=== PATIENT | female | born 1930 | race Caucasian/White ===

== ENCOUNTER 2019-11-04 20:19 | Emergency (ER) | payer MEDICARE ==
[~2019-11-04] VITALS: Ht 157.5 cm; Wt 76.7 kg
--- NOTE | 2019-11-04 21:37 | Diagnostic Imaging Report ---
EXAMINATION: Head CT without contrast. HISTORY:Status post fall. COMPARISON:None. TECHNIQUE: Multidetector axial images were obtained from the foramen magnum to the vertex without contrast. The images were reconstructed using brain and bone algorithms. Thin section brain images were reformatted into coronal and sagittal planes. Dose modulation, iterative reconstruction, and/or weight based adjustment of the mA/kV was utilized to reduce the radiation dose to as low as reasonably achievable. Intravenous contrast: None IMAGE QUALITY: Suboptimal evaluation particularly of the skull base and posterior fossa structures due to streak artifacts. FINDINGS: Skull/scalp: Moderate left parietal scalp soft tissue edema/hematoma with a small focus of soft tissue air represents laceration with overlying surgical jose. No acute depressed or displaced calvarial fracture. Parenchyma: Nonspecific bilateral frontoparietal confluent periventricular and patchy subcortical and deep white matter hypodensity are likely related to small vessel ischemic changes. 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 Focal hypodensity in left cerebellar hemisphere represents chronic lacunar infarct. No acute hemorrhage, mass or acute major vascular territorial infarct. Arteries: No density suggestive of thrombosis. Atherosclerotic calcification in bilateral carotid siphon. Dural sinuses: No abnormal density suggestive of thrombosis. Ventricles: Mild compensated dilatation due to volume loss. No hydrocephalus. Extra-axial spaces: No abnormal density. Brain volume: Generalized age-related cerebral volume loss. Craniocervical junction: No mass, Chiari malformation, or basilar invagination. Sella: No mass. Paranasal/mastoid sinuses: Imaged portions unremarkable. IMPRESSION: 1. Moderate left parietal scalp soft tissue edema/hematoma and laceration. No acute fracture. 2. No acute posttraumatic intracranial abnormality. 3. Moderate supratentorial white matter microvascular ischemic changes. 4. 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 5. Generalized age-related cerebral volume loss. Signed by: Dr. Emily Sherman M.D. on 11/04/2019 9:34 PM
--- NOTE | 2019-11-04 21:41 | Emergency Department Note ---
History of Present Illnes History of Present Illness Chief Complaint: Head/Face Trauma History of Present Illness This is a 89 year old female ED with report of fall this am, pt was taken to [facility] and had 4 jose placed to back of head, CT performed and labs drawn, was dc'd back to [facility] with Dx UTI;PER SNF PT SENT TO BE MONITORED PER PHYSICIAN TAKING CARD OF PT, PT IN NO DISTRESS . Historian: Patient, Family Member, [employer] Mechanic/EMS Arrival Mode: nc Onset (how long ago): hour(s) (10) Location: HEAD Quality: LACERATION, Severity: mild Onset quality: sudden Duration (how long): hour(s) (10) Progression: unchanged Chronicity: new Relieving factors: none Exacerbating factors: none Previous service: other (SEEN AT [facility], JOSE PLACED IN LACERATION) Past Medical/Family History Physician Review I have reviewed the patient's past medical and family history. Any updates have been documented here. Past Medical History Recent Fever: No Clinical Suspicion of Infectio: No New/Unexplained Change in Ment: No Past Medical History: Hypertension, CVA, Cancer, UTI's, Anxiety, GERD, Hyperlipedemia Other Surgery: unk Social History Smoking Cessation: Never Smoker Alcohol Use: Occasional Any Illegal Drug Use: No Family History Family history of heart diseas: No Other Last Tetanus: utd Review of Systems Review of Systems Constitutional: Reports no symptoms EENTM: Reports no symptoms Cardiovascular: Reports no symptoms Respiratory: Reports no symptoms Gastrointestinal: Reports no symptoms Genitourinary: Reports no symptoms Musculoskeletal: Reports as per HPI Integumentary: Reports no symptoms Neurological: Reports no symptoms Psychological: Reports no symptoms Endocrine: Reports no symptoms Hematological/Lymphatic: Reports no symptoms Physical Exam Related Data Allergies: Coded Allergies: hydromorphone (Verified Allergy, Intermediate, 11/04/19) levofloxacin (Verified Allergy, Intermediate, 11/04/19) morphine (Verified Allergy, Intermediate, 11/04/19) moxifloxacin (Verified Allergy, Intermediate, 11/04/19) pramipexole (Verified Allergy, Intermediate, 11/04/19) Triage Vital Signs Vital Signs Date Time Temp Pulse Resp B/P (MAP) Pulse Ox O2 Delivery O2 Flow Rate FiO2 11/04/19 21:06 98.9 92 17 144/87 98 Vital signs reviewed: Yes Physical Exam CONSTITUTIONAL Constitutional: Present well-developed, Present well-nourished HENT HENT: Present normocephalic, Present oropharynx clear/moist, Present nose normal, Present other (4 JOSE TO POSTERIOR SCALP) HENT L/R: Present left ext ear normal, Present right ext ear normal EYES Eyes: Reports PERRL, Reports conjunctivae normal NECK Neck: Present ROM normal PULMONARY Pulmonary: Present effort normal, Present breath sounds normal CARDIOVASCULAR Cardiovascular: Present regular rhythm, Present heart sounds normal, Present capillary refill normal, Present normal rate GASTROINTESTINAL Abdominal: Present soft, Present nontender, Present bowel sounds normal GENITOURINARY Genitourinary: Present exam deferred SKIN Skin: Present warm, Present dry MUSCULOSKELETAL Musculoskeletal: Present ROM normal NEUROLOGICAL Neurological: Present alert, Present oriented x 3, Present no gross motor or sensory deficits PSYCHOLOGICAL Psychological: Present mood/affect normal, Present judgement normal Results Imaging Imaging results reviewed: Yes Impressions EXAMINATION: Head CT without contrast. HISTORY:Status post fall. COMPARISON:None. TECHNIQUE: Multidetector axial images were obtained from the foramen magnum to the vertex without contrast. The images were reconstructed using brain and bone algorithms. Thin section brain images were reformatted into coronal and sagittal planes. Dose modulation, iterative reconstruction, and/or weight based adjustment of the mA/kV was utilized to reduce the radiation dose to as low as reasonably achievable. Intravenous contrast: None IMAGE QUALITY: Suboptimal evaluation particularly of the skull base and posterior fossa structures due to streak artifacts. FINDINGS: Skull/scalp: Moderate left parietal scalp soft tissue edema/hematoma with a small focus of soft tissue air represents laceration with overlying surgical jose. No acute depressed or displaced calvarial fracture. Parenchyma: Nonspecific bilateral frontoparietal confluent periventricular and patchy subcortical and deep white matter hypodensity are likely related to small vessel ischemic changes. 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 Focal hypodensity in left cerebellar hemisphere represents chronic lacunar infarct. No acute hemorrhage, mass or acute major vascular territorial infarct. Arteries: No density suggestive of thrombosis. Atherosclerotic calcification in bilateral carotid siphon. Dural sinuses: No abnormal density suggestive of thrombosis. Ventricles: Mild compensated dilatation due to volume loss. No hydrocephalus. Extra-axial spaces: No abnormal density. Brain volume: Generalized age-related cerebral volume loss. Craniocervical junction: No mass, Chiari malformation, or basilar invagination. Sella: No mass. Paranasal/mastoid sinuses: Imaged portions unremarkable. IMPRESSION: 1. Moderate left parietal scalp soft tissue edema/hematoma and laceration. No acute fracture. 2. No acute posttraumatic intracranial abnormality. 3. Moderate supratentorial white matter microvascular ischemic changes. 4. 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 5. Generalized age-related cerebral volume loss. Signed by: Dr. Emily Sherman M.D. on 11/04/2019 9:34 PM Assessment & Plan Medical Decision Making MDM PT S/P FALL THIS AM, SEEN AT [facility] AND REPORTEDLY HAD CT DONE CT BRAIN ORDERED TO EVAL FOR INTRACRANIAL INJURY Assessment & Plan Final Impression: (1) Head contusion Depart Disposition: DIS TO SNF BED Last Vital Signs Date Time Temp Pulse Resp B/P (MAP) Pulse Ox O2 Delivery O2 Flow Rate FiO2 11/04/19 21:06 98.9 92 17 144/87 98 JUSTA POLK MD Nov 04, 2019 21:41
[2019-11-04 22:19] VITALS: BP 142/79
== END 2019-11-04 22:56 | disposition home or self-care (01) ==
LOC: ER 20:19
DX: S00.83XA Contusion of other part of head, initial encounter (principal); W18.30XA Fall on same level, unspecified, initial encounter; I10 Essential (primary) hypertension; K21.9 Gastro-esophageal reflux disease without esophagitis; F41.9 Anxiety disorder, unspecified; E78.5 Hyperlipidemia, unspecified; Z86.73 Personal history of transient ischemic attack (TIA), and cerebral infarction without residual deficits
CPT/HCPCS: 70450; 99283